=== PATIENT | male | born 1975 | race Caucasian/White ===

== ENCOUNTER 2017-04-08 17:28 | Emergency (ER) | payer OTHER ==
[2017-04-08 17:41] VITALS: BP 145/103
[2017-04-08] MEDS ORDERED: BUFFERED LIDOCAINE 10 ML SYRINGE SUBQ STA (17:41)
--- NOTE | 2017-04-08 17:43 | ED Physician Documentation ---
PD HPI UPPER EXT INJURY - Stated complaint Stated Complaint: R POINTER LAC - Chief complaint Chief Complaint: Laceration - History obtained from History obtained from: Patient - History of Present Illness Location: Right, Finger Type of injury: Laceration (on table saw) Where injury occurred: Home Timing - onset: Today (just [place]) Associated symptoms: Numbness. No: Weakness, Tingling - Additonal information Additional information: Right handed, UTD on tetanus Review of Systems Constitutional: reports: Reviewed and negative Cardiac: reports: Reviewed and negative Respiratory: reports: Reviewed and negative PD PAST MEDICAL HISTORY - Present Medications Home Medications: Ambulatory Orders Medication Instructions Recorded Confirmed Omeprazole [PriLOSEC] 20 mg PO DAILY 04/08/17 04/08/17 - Allergies Allergies/Adverse Reactions: Allergies Allergy/AdvReac Type Severity Reaction Status Date / Time No Known Drug Allergies Allergy Verified 04/08/17 17:42 PD ED PE NORMAL - Vitals Vital signs reviewed: Yes - General General: Alert and oriented X 3, No acute distress - Extremities Extremities: Other (The radial side of the right second finger there is a curved laceration involving the distal phalanx only, medial to the nail bed, over the laceration itself he is insensate but otherwise neurovascular status is intact.) - Neuro Neuro: Alert and oriented X 3, Normal speech - Psych Psych: Normal mood, Normal affect Results - Vitals Vitals: Vital Signs - 24 hr 04/08/17 17:37 Temperature 36.5 C Heart Rate 73 Respiratory 15 Rate Blood Pressure 145/103 H O2 Saturation 92 Oxygen O2 Source Room air Procedures - Laceration (location) R 2nd finger Length in cm: 2 Wound type: Curved, Flap, Into subcut fat. No: Into muscle Neurovascular status: Motor intact, Vascular intact Tendon involvement: Tendon intact Anesthesia: Lidocaine 1%, With bicarb (dig block) Wound Preparation: Betadine, Irrigated copiously NS Skin layer closure: Nylon, Size #-0 - enter number (4-0), Sutures - enter # (11) Other: Tetanus UTD Complexity: Simple Departure - Departure Disposition: 01 Home, Self Care Clinical Impression: Laceration Condition: Good Record reviewed to determine appropriate education?: Yes Instructions: ED Laceration Hand Comments: Wash the wound briefly but in general keep it dry and covered. Come back for any signs of infection which would include: Redness, swelling, drainage, increased pain, or fevers. Followup with your doctor in 14 days for suture removal. Your blood pressure was elevated today on check in to the emergency department. This does not mean that you have hypertension, it is a common phenomenon to check into the emergency department and have elevated blood pressure. I recommend that you see your primary care physician within the week to have it rechecked when you're feeling better.
[2017-04-08] MEDS ORDERED: BUFFERED LIDOCAINE 10 ML SYRINGE ONE (17:52)
[2017-04-08] MEDS ORDERED: BACITRACIN OINT TOP ONE (19:15)
== END 2017-04-08 19:06 | disposition home or self-care (01) ==
LOC: ED 17:28
DX: S61.210A Laceration without foreign body of right index finger without damage to nail, initial encounter (principal); W45.8XXA Other foreign body or object entering through skin, initial encounter; W31.2XXA Contact with powered woodworking and forming machines, initial encounter; Y93.89 Activity, other specified; Y92.009 Unspecified place in unspecified non-institutional (private) residence as the place of occurrence of the external cause; R03.0 Elevated blood-pressure reading, without diagnosis of hypertension
CPT/HCPCS: 12001; 99283; A9270

== ENCOUNTER 2018-09-20 11:25 | Outpatient (CLI) | payer OTHER | END 2018-09-20 11:26 | disposition E | LOC: EMS 11:25 | PROVIDERS: ATTEND Surgery ==